=== PATIENT | female | born 1955 | race Caucasian/White ===

== ENCOUNTER 2022-10-14 12:09 | Emergency (ER) | payer MEDICARE, OTHER, SELFPAY ==
[2022-10-14 12:17] VITALS: BP 135/76; PULSE 74; RESP 16; TEMP 37.2; O2SAT 99
--- NOTE | 2022-10-14 13:29 | ED.GENADULT ---
HPI - General Adult General Chief complaint: Upper Respiratory Infection Stated complaint: Congestion Source: patient Mode of arrival: ambulatory Limitations: no limitations History of Present Illness HPI narrative: Patient presents for evaluation of sinus symptoms for last 3 days. Symptoms include sinus congestion, increased pressure, frontal headache, mucopurulent discharge from her nares. No fever, chills, nausea, vomiting. She has a mild sore throat. She has obstructive sleep apnea and has been unable to use her CPAP as she is experiencing some difficulty breathing through her nose. She tried taking Sudafed for symptoms. She is a former smoker. No other complaints at this time. Related Data Home Medications Medication Instructions Recorded Confirmed alendronate 35 mg tablet 35 mg PO DAILY 10/14/22 10/14/22 amlodipine 5 mg tablet 5 mg DAILY 10/14/22 10/14/22 atorvastatin 10 mg tablet 10 mg DAILY 10/14/22 10/14/22 bupropion HCl 150 mg 24 hr tablet, 150 mg PO DAILY 10/14/22 10/14/22 extended release famotidine 20 mg tablet 20 mg DAILY 10/14/22 10/14/22 folic acid 1 mg tablet 1 mg DAILY 10/14/22 10/14/22 golimumab 12.5 mg/mL intravenous mg IV 10/14/22 10/14/22 solution (Simponi ARIA) losartan 25 mg tablet 25 mg DAILY 10/14/22 10/14/22 methotrexate sodium 2.5 mg tablet mg 10/14/22 10/14/22 methotrexate sodium 25 mg/mL 25 mg subcut WEEKLY 10/14/22 10/14/22 injection solution temazepam 15 mg capsule 15 mg DAILY 10/14/22 10/14/22 tramadol 50 mg tablet 50 mg DAILY 10/14/22 10/14/22 Allergies Allergy/AdvReac Type Severity Reaction Status Date / Time No Known Allergies Allergy Verified 10/14/22 12:34 Review of Systems Review of Systems: CONSTITUTIONAL: Denies fever, chills, or sweats. EYES: Denies visual changes, redness, or discharge. ENT: Reports sinus congestion, frontal headache, increased sinus pressure, mucopurulent discharge from the nares. CARDIOVASCULAR: Denies chest pain, palpitations, or edema. RESPIRATORY: Denies cough or dyspnea. GASTROINTESTINAL: Denies abdominal pain, nausea, vomiting, or diarrhea. GENITOURINARY: Denies dysuria or hematuria. SKIN: Denies rash or itching. MUSCULOSKELETAL: Denies back pain, joint pain, or myalgia. NEUROLOGIC: Denies headache, numbness, dizziness, or weakness. PSYCHIATRIC: Denies anxiety or depression. [facility] Past Medical History Medical History Hyperlipidemia Hypertension Obstructive sleep apnea Surgical History Surgical History No pertinent past surgical history Family History Family History Mother Family history non-contributory Social History Social History (Updated 10/14/22 @ 13:33 by ROOSEVELT Coburn, ) Smoking status: Former smoker Smoking end date: 08/27/12 Alcohol intake: current Substance use: never Gender identity (if verbalized by the patient): Female Spiritual care concerns: No Exam Narrative: GENERAL: Well-appearing, well-nourished, and in no acute distress. HEAD: Normocephalic, atraumatic. EYES: PERRLA and EOMI. ENT: Bilateral maxillary sinus tenderness. There is mucopurulent discharge in the nares. Mucous membranes moist. Oropharynx without tonsillar hypertrophy exudate or other lesions. Bilateral TMs pearly pierson nonbulging NECK: Supple. No adenopathy or masses. No carotid bruits or JVD CHEST: Clear to auscultation. No respiratory distress. No wheezes rales or rhonchi HEART: Regular rate and rhythm. No murmur heard. Normal peripheral pulses. ABDOMEN: Soft, nontender, nondistended, normal active bowel sounds. EXTREMITIES: Normal range of motion. No edema. SKIN: Warm, dry, no rash. NEURO: No focal deficits. Alert and oriented x3. PSYCH: Normal mood and affect. Course Course Emergency Course: This is a 67 year old female wh
== END 2022-10-14 13:32 | disposition home or self-care (01) ==
PROVIDERS: Emergency Provider Nurse Practitioner; PCP Family Medicine
DX: J32.9 Chronic sinusitis, unspecified (principal); Z87.891 Personal history of nicotine dependence; E78.5 Hyperlipidemia, unspecified; I10 Essential (primary) hypertension; G47.33 Obstructive sleep apnea (adult) (pediatric)
CPT/HCPCS: 99203; G0463

== ENCOUNTER 2024-07-16 17:12 | Emergency (ER) | payer MEDICARE, OTHER, SELFPAY ==
[2024-07-16 17:20] VITALS: BP 146/75; PULSE 85; RESP 18; TEMP 36.4; O2SAT 99
--- NOTE | 2024-07-16 17:50 | ED.URI ---
HPI - URI/Sore Throat General Chief Complaint: Upper Respiratory Infection Stated Complaint: throat Time Seen by Provider: 07/16/24 17:45 Source: patient, RN notes reviewed and old records reviewed Mode of arrival: ambulatory Limitations: no limitations History of Present Illness HPI Narrative: 68 year old female who presents to [facility] care with complaints of sore throat for the past 2 days especially sore with swallowing. Patient reports that she has not had a fever no cough or any sinus congestion or drainage. No known exposure to anyone with ill symptoms.Pateint has been using salt water gargles for her symptoms. MD elicited complaint: sore throat Pertinent past history: immunosuppression (Simponi Aria and is on methotrexate) Onset (ago): day(s) (2) Pain scale (0-10): 5 Able to tolerate fluids by mouth: Yes Exacerbating factors: swallowing Treatments prior to arrival: other (salt water gargles) Related Data Home Medications Medication Instructions Recorded Confirmed alendronate 35 mg tablet 35 mg PO DAILY 10/14/22 07/16/24 amlodipine 5 mg tablet 5 mg DAILY 10/14/22 07/16/24 atorvastatin 10 mg tablet 10 mg DAILY 10/14/22 07/16/24 bupropion HCl 150 mg 24 hr tablet, 150 mg PO DAILY 10/14/22 07/16/24 extended release famotidine 20 mg tablet 20 mg DAILY 10/14/22 07/16/24 folic acid 1 mg tablet 1 mg DAILY 10/14/22 07/16/24 golimumab 12.5 mg/mL intravenous 12.5 mg IV DIRECTED 10/14/22 07/16/24 solution (Simponi ARIA) losartan 25 mg tablet 25 mg DAILY 10/14/22 07/16/24 methotrexate sodium 2.5 mg tablet 2.5 mg DIRECTED 10/14/22 07/16/24 methotrexate sodium 25 mg/mL 25 mg subcut WEEKLY 10/14/22 07/16/24 injection solution temazepam 15 mg capsule 15 mg DAILY 10/14/22 07/16/24 tramadol 50 mg tablet 50 mg DAILY 10/14/22 07/16/24 Allergies Allergy/AdvReac Type Severity Reaction Status Date / Time No Known Allergies Allergy Verified 10/14/22 12:34 Review of Systems Review of Systems: CONSTITUTIONAL: Denies malaise, chills, sweats, or fever. EYES: Denies visual changes, redness, or discharge. ENT: Reports no rhinorrhea, congestion, no sinus pain,no otalgia and positive sore throat. CARDIOVASCULAR: Denies chest pain, palpitations, or edema. RESPIRATORY: Reports no cough.? Denies dyspnea. GASTROINTESTINAL: Denies abdominal pain, nausea, vomiting, diarrhea SKIN: Denies rash or itching. MUSCULOSKELETAL: Denies myalgia. NEUROLOGIC: Denies headache. All systems reviewed & are unremarkable except as noted in HPI and below PMFSH Past Medical History Medical History Ankylosing spondylitis Hyperlipidemia Hypertension Obstructive sleep apnea Surgical History Surgical History History of left hip replacement Hx of appendectomy Family History Family History Mother Family history non-contributory Social History Social History Smoking status: Former smoker Smoking end date: 08/27/12 Alcohol intake: current Substance use: never Gender identity (if verbalized by the patient): Female Spiritual care concerns: No Comments At time of signature, agree with nursing past medical, surgical, social and family history. There is no relevant family history pertinent to the presenting complaint Exam Narrative: GENERAL: Well-appearing, well-nourished, and in no acute distress. HEAD: Normocephalic EYES: PERRLA, conjunctivae clear ENT: Nares clear, turbinates edematous and erythematous, clear discharge. Mucous membranes moist. TM pearly pierson with dull light reflex bilaterally; no tragal tenderness. Oropharynx erythematous without lesions. Tonsils red not enlarged and without exudate, no drooling, no hoarseness, no trismus, uvula midline, scant.post nasal drainage NECK: Supple. No lymphadenopathy CHEST: Clear to auscultation, breath sounds equal. No wheezing, rhonchi, rales, or stridor. No respiratory distress, speaks in full sentences.no cough noted SAO2 99% on room air HEART: Regular rate and rhythm. No murmur heard. SKIN: Warm, dry, no rash. NEURO: Alert and oriented x3. PSYCH: Normal mood and affect Course Course Emergency Course: Patient is aware of diagnosis, understands and agrees to treatment plan.? Anticipatory guidance given.? Patient agrees to follow-up as directed and is aware of reasons to seek care at the emergency department. Portions of this record may have been created with voice recognition software Level of Care: Express Care Visit Vital Signs Vital signs: Vital Signs Temperature 36.4 C 07/16/24 17:20 Pulse Rate 85 07/16/24 17:20 Respiratory Rate 18 07/16/24 17:20 Blood Pressure 146/75 H 07/16/24 17:20 Pulse Oximetry 99 07/16/24 17:20 Oxygen Delivery Room Air 07/16/24 17:20 Temperature 36.4 C 07/16/24 17:20 Pulse Rate 85 07/16/24 17:20 Respiratory Rate 18 07/16/24 17:20 Blood Pressure 146/75 H 07/16/24 17:20 Pulse Oximetry 99 07/16/24 17:20 Oxygen Delivery Room Air 07/16/24 17:20 Reviewed MDM - URI/Sore Throat MDM Narrative Medical decision making narrative: Differential diagnosis considered: Antoine virus, strep pharyngitis, allergic rhinitis, upper respiratory tract infection, sinusitis, rhinosinusitis, nasopharyngitis. viral pharyngitis, otitis media, otitis externa, pneumonia, bronchitis, viral cough syndrome, viral syndrome, and influenza.? Exam findings show no acute concerns or changes; patient is non-toxic appearing and is in no distress.? Patient is appropriate for outpatient treatment and follow-up. Differential Diagnosis Differential diagnosis: Likely upper respiratory infection, viral infection, pharyngitis and other (strep pharyngitis) Medical Records Attestation: I reviewed the patient's medical records. Lab Data Attestation: I reviewed the patient's lab results. Lab results narrative: strep screen negative, culture sent Labs: Lab Results 07/16/24 Range/Units 18:26 POC Grp A Strep Screen Negative (Negative) Critical Care Time Critical Care Time Critical Care Time: No Discharge Plan Discharge Clinical Impression: Upper respiratory infection Qualifiers: URI type: unspecified URI Qualified Code(s): J06.9 - Acute upper respiratory infection, unspecified Pharyngitis Qualifiers: Pharyngitis/tonsillitis etiology: unspecified etiology Qualified Code(s): J02.9 - Acute pharyngitis, unspecified Patient Disposition: Home, Self-Care Condition: Stable Instructions: Pharyngitis (ED), Upper Respiratory Infection (ED) Additional Instructions: Increase fluids especially juices and water [id number] cough and cold medicine of your choice for your symptoms Zyrtec Claritin or Anita daily include Coricidin brand decongestant Steroids as directed--take with food heat to the face 20-30 minutes 4-6 times a day for pain Salt water gargles, throat lozenges or throat sprays as desired Your strep test today was negative. A throat culture will be sent to the laboratory for further testing. IF the test is positive, you will receive a phone call within 48 hours and an appropriate antibiotic will be initiated at that time. If your symptoms persist, change or worsen significantly before you can contact your personal physician then please, without delay, go to the emergency department for further evaluation. Follow-up with PCP in 7-10 days or sooner if needed Follow up with PCP soon in regards to your blood pressure which is elevated above threshold for referral. Blood pressure above 120/80 may indicate pre-hypertension. 146/75 Prescriptions: New methylprednisolone [Medrol ([place])] 4 mg tablets,dose pack See Rx Instructions .ROUTE .COMPLEX Qty: 21 0RF Rx Instructions: orally per package directions generic No Action amlodipine 5 mg tablet 5 mg DAILY atorvastatin 10 mg tablet 10 mg DAILY methotrexate sodium 25 mg/mL solution 25 mg subcut WEEKLY tramadol 50 mg tablet 50 mg DAILY alendronate 35 mg tablet 35 mg PO DAILY famotidine 20 mg tablet 20 mg DAILY temazepam 15 mg capsule 15 mg DAILY methotrexate sodium 2.5 mg tablet 2.5 mg DIRECTED losartan 25 mg tablet 25 mg DAILY folic acid 1 mg tablet 1 mg DAILY bupropion HCl 150 mg tablet extended release 24 hr 150 mg PO DAILY Simponi ARIA 12.5 mg/mL Solution 12.5 mg IV DIRECTED Follow-up/Referrals: Chago,Brady Loyola MD [Primary Care Provider] - Time of Disposition: 18:04 Quality [place] Coma Scale Eyes: Open Verbal: Oriented and Alert Motor: Follows Commands [place] Coma Total Score: 15
[2024-07-16 18:27] LABS: EDSTREPNEGPOS1 Negative (Negative)
== END 2024-07-16 18:09 | disposition home or self-care (01) ==
PROVIDERS: Emergency Provider Registered Nurse; PCP Family Medicine
DX: J06.9 Acute upper respiratory infection, unspecified (principal); J02.9 Acute pharyngitis, unspecified; Z87.891 Personal history of nicotine dependence; I10 Essential (primary) hypertension; E78.5 Hyperlipidemia, unspecified; M45.9 Ankylosing spondylitis of unspecified sites in spine; Z96.642 Presence of left artificial hip joint
CPT/HCPCS: 87081; 87880; 99213; G0463